=== PATIENT | female | born 2000 | race Hispanic/Latino ===

== ENCOUNTER 2023-07-19 19:11 | Emergency (ER) | payer OTHER, SELFPAY ==
--- NOTE | ~2023-07-19 | XR_ITS ---
EXAMINATION: XR chest 2V DATE: 07/19/2023 23:04 INDICATION: Chest pain and cough, shortness of breath TECHNIQUE: PA and lateral views of the chest are obtained. COMPARISON: None available FINDINGS: There are minimal airspace opacities of the middle lobe and lingula. No pleural effusion or pneumothorax. The cardiomediastinal silhouette is normal. The visualized bones and soft tissues are unremarkable. IMPRESSION: 1. Minimal airspace opacities of the lung bases, consistent with atelectasis versus pneumonia. Reviewed, dictated and finalized at location F. IMPRESSION: 1. Minimal airspace opacities of the lung bases, consistent with atelectasis ve rsus pneumonia.
--- NOTE | ~2023-07-19 | CT_ITS ---
EXAMINATION: CTA chest PE protocol DATE: 07/20/2023 00:50 INDICATION: Pleuritic chest pain. Tachycardia. TECHNIQUE: Computed tomography angiography (CTA) of the chest was performed with 100 mL Omnipaque-350 intravenous contrast timed to evaluate the pulmonary arteries. Coronal maximum intensity projection 3D-reconstructions were created by the technologist. Automated exposure control and iterative reconst ruction technique were employed. The dose-length product was 144.85 mGy-cm. COMPARISON: None. FINDINGS: There are small groundglass opacities in the lungs bilaterally. There is diffuse smooth sep theodora thickening in the lungs. There is mild atelectasis bilaterally. No pleural effusion. The heart si ze is normal. No pericardial effusion. There is no pulmonary embolus. There is mild thoracic spondylo sis. IMPRESSION: 1. No pulmonary embolus. 2. Mild pulmonary edema. Reviewed, dictated and finalized at location E.
[2023-07-19 19:55] VITALS: BP 120/80; PULSE 122; RESP 15; TEMP 37; O2SAT 100
[2023-07-19 20:43] LABS: Influenza A QL RT-PCR Negative (Negative); Influenza B QL RT-PCR Negative (Negative); RSV RNA, RT-PCR Negative (Negative); SARS-CoV-2 RNA PCR Negative (Negative)
--- NOTE | 2023-07-19 22:44 | ECG_ITS ---
Measurements Intervals [place] Rate: 116 P: 65 [place]: 146 QRS: 79 QRSD: 102 T: 0 QT: 311 QTc: 432 Interpretive Statements SINUS TACHYCARDIA DELAYED PRECORDIAL R/S TRANSITION MINIMAL Q WAVES- INFERIOR LEADS NONSPECIFIC ST & T-WAVE ABNORMALITY- INFERIOR LEADS ABNORMAL ECG NO PREVIOUS ECG AVAILABLE FOR COMPARISON Electronically Signed On 07-20-2023 6:29:03 CDT by Eleazar Tristan D.O.
--- NOTE | 2023-07-19 22:58 | ED.URI ---
HPI - URI/Sore Throat General Chief Complaint: Upper Respiratory Infection Stated Complaint: flu symptoms Time Seen by Provider: 07/19/23 21:35 History of Present Illness HPI Narrative: 22-year-old female reports for evaluation for body aches and chills, pleuritic chest pain, cough since today. Patient reports she feels like her lungs are on fire and tight . She states the chest pain is pleuritic and overlying her sternum and sometimes into her back. Denies shortness of breath. She reports nausea today, no vomiting or diarrhea. Denies abdominal pain, dysuria, hematuria. She does state that she was recently treated for a urinary tract infection and took her last dose of antibiotics today. States her UTI symptoms consisted of urinary frequency and urgency which resolved after initiation of antibiotics, however she feels that they have returned again today. LMP 9/10. Patient denies nasal congestion and sore throat. Patient is currently on control, she denies hemoptysis, history of VTE, recent surgeries or hospitalizations Related Data Home Medications Medication Instructions Recorded Confirmed cetirizine 10 mg capsule (Zyrtec) 10 mg PO DAILY PRN 02/02/22 02/02/22 fluticasone propionate 50 1 spray intranasal DAILY 02/02/22 02/02/22 mcg/actuation nasal spray,suspension (Flonase Allergy Relief) Allergies Allergy/AdvReac Type Severity Reaction Status Date / Time No Known Allergies Allergy Verified 07/19/23 19:55 Review of Systems Review of Systems: CONSTITUTIONAL: See HPI EYES: Denies visual changes, redness, or discharge. ENT: See HPI CARDIOVASCULAR: See HPI RESPIRATORY: See HPI GASTROINTESTINAL: Denies abdominal pain, nausea, vomiting, or diarrhea. GENITOURINARY: Denies dysuria or hematuria. SKIN: Denies rash or itching. MUSCULOSKELETAL: Denies back pain, joint pain, or myalgia. NEUROLOGIC: Denies headache, numbness, dizziness, or weakness. PSYCHIATRIC: Denies anxiety or depression. [facility] Social History Social History Smoking status: Never smoker Alcohol intake: never Substance use: never Exam Narrative: GENERAL: Well-appearing, in no acute distress. Patient resting abdomen exam bed. She is pleasant and conversational. HEAD: Normocephalic EYES: PERRLA, EOMI ENT: Nares clear. Mucous membranes moist. Oropharynx without tonsillar hypertrophy exudate or other lesions. Bilateral TMs are kruse nonbulging. Normal canals. Tenderness over the frontal and maxillary sinuses. NECK: Supple. No nuchal rigidity. CHEST: No respiratory distress. Clear to auscultation, no adventitious breath sounds. HEART: Regular rhythm. Tachycardia. No murmur heard. Normal peripheral pulses. ABDOMEN: Soft, nontender, normal active bowel sounds. EXTREMITIES: Normal range of motion. No edema. SKIN: Warm, dry, no rash. NEURO: No focal deficits. Alert and oriented x3. PSYCH: Normal mood and affect. Course Vital Signs Vital signs: Vital Signs Temperature 98.6 F 07/19/23 19:55 Pulse Rate 122 H 07/19/23 19:55 Respiratory Rate 15 07/19/23 19:55 Blood Pressure 120/80 07/19/23 19:55 Pulse Oximetry 100 07/19/23 19:55 Temperature 98.6 F 07/19/23 19:55 Pulse Rate 114 H 07/20/23 02:57 Respiratory Rate 15 07/20/23 02:57 Blood Pressure 103/48 L 07/20/23 02:57 Pulse Oximetry 100 07/20/23 02:57 MDM - URI/Sore Throat MDM Narrative Medical decision making narrative: 22-year-old female reports for evaluation for body aches and chills, pleuritic chest pain, cough, urinary frequency and urgency since today. See HPI for further history. Initial vitals reveal tachycardia of 122, otherwise unremarkable. She is satting 100% on room air and afebrile. Patient is well-appearing on exam, exam significant for the above. Labs significant for leukocytosis of 15.4. Chemistry shows sodium of 132, bicarb of 21 with a normal gap,
[2023-07-19] MEDS: SODIUM CHLORIDE 0.9% IV 1,000 ML 999 ML IV CONT (23:06)
[2023-07-19 23:16] LABS: Basophils Percent Auto 0.1 % (0.2-1.2); Eosinophils Absolute Auto 0.3 K/mm3 (0-0.3); Eosinophils Percent Auto 1.8 % (0-4.4); Hematocrit 38.4 % (37.0-47.0); Hemoglobin 12.4 g/dL (12.0-15.0); Immature Granulocyte Absolute 0.05 K/mm3 (0.00-0.031); Immature Granulocyte Percent A 0.3 % (0-0.5); Lymphocytes Absolute Auto 0.79 K/mm3 (0.9-3.2); Lymphocytes Percent Auto 5.1 % (18.3-44.2); Mean Corpuscular HGB Conc 32.3 g/dl (32-36); Mean Corpuscular Hemoglobin 28.6 pg (26-34); Mean Corpuscular Volume 88.7 fl (80-100); Mean Platelet Volume 11.2 fl (7.4-10.4); Monocytes Absolute Auto 0.9 K/mm3 (0.1-0.6); Monocytes Percent Auto 5.6 % (2.6-8.5); Neutrophils Absolute Auto 13.4 K/mm3 (1.3-6.7); Neutrophils Percent Auto 87.1 % (45.5-73.1); Platelet Count Result 237 k/mm3 (150-375); Red Blood Count 4.33 M/mm3 (4.2-5.4); Red Cell Distribution Width 12.4 % (11.5-14.5); White Blood Count 15.4 K/mm3 (4.5-10.0)
[2023-07-19] MEDS: ALBUTEROL SULFATE NEB 2.5 MG/3 ML INH INHALATION (23:22)
[2023-07-19 23:23] VITALS: PULSE 84; RESP 18
[2023-07-19] MEDS: IPRATROPIUM BR 0.02% INH SOLN 0.5 MG/2.5 ML VIAL INHALATION (23:23)
[2023-07-19 23:26] LABS: Alanine Aminotransferase 16 U/L (6-35); Albumin Level 4.5 g/dL (3.5-5.1); Alkaline Phosphatase 67 U/L (38-126); Anion Gap 8 mmol/L (8-16); Aspartate Amino Transferase 25 U/L (14-36); Bilirubin,Total 0.7 mg/dL (0.2-1.3); Blood Urea Nitrogen 5 mg/dL (7-17); Calcium 8.6 mg/dL (8.4-10.2); Carbon Dioxide 21 mmol/L (22-30); Chloride 103 mmol/L (98-107); Estimated Glomerular Filt Rate > 60; Glucose 111 mg/dL (65-110); Potassium 3.4 mmol/L (3.4-5.0); Sodium 132 mmol/L (137-145)
[2023-07-19 23:27] LABS: Appearance Urine Clear (Clear); Bacteria Urine None Seen /hpf; Bilirubin Urine Negative (Negative); Blood Urine Negative (Negative); Color Urine Yellow (Yellow); Glucose Urine UA Negative (Negative); Ketones Urine 4+ mg/dL (Negative); Leukocyte Esterase Ur Trace LEU/UL (Negative); Nitrate Urine Negative (Negative); Non Pathogenic Casts 0-2; Protein Urine Trace mg/dL (Negative); Specific Grav Ur 1.022 (1.001-1.035); Squamous Epithelial Cell Urine Occasional /hpf (Few); pH Urine 7.5 (5.0-9.0)
[2023-07-19 23:28] LABS: Add Urine Microscopic? YES
[2023-07-19 23:31] VITALS: PULSE 86; RESP 18
[2023-07-19 23:38] LABS: Troponin I < 0.012 ng/mL (0.000-0.034)
[2023-07-19 23:48] LABS: D Dimer 0.52 ug/mL (<0.48)
[2023-07-20 00:08] VITALS: BP 149/49; PULSE 141; RESP 15; O2SAT 99
[2023-07-20 00:10] LABS: Pregnancy On Board Control Positive; Urine Pregnancy Test Negative
[2023-07-20] MEDS: SODIUM CHLORIDE 0.9% IV 1,000 ML 999 ML IV CONT ×2 (01:08→03:00)
[2023-07-20 02:57] VITALS: BP 103/48; PULSE 114; RESP 15; O2SAT 100
[2023-07-20 04:41] VITALS: BP 113/65; PULSE 108; RESP 16; TEMP 37; O2SAT 100
== END 2023-07-20 04:42 | disposition home or self-care (01) ==
PROVIDERS: Emergency Medicine; Emergency Provider Physician Assistant; PCP Registered Nurse
DX: J18.9 Pneumonia, unspecified organism (principal); E86.0 Dehydration; R07.89 Other chest pain; R82.998 Other abnormal findings in urine; Z20.822 Contact with and (suspected) exposure to COVID-19; R00.0 Tachycardia, unspecified; R94.31 Abnormal electrocardiogram [ECG] [EKG]
CPT/HCPCS: 36415; 71046; 71275; 80053; 81001; 81025; 84484; 85025; 85380; 87086; 87637; 93005; 94640; 96360; 96361; 99284; J7030; Q9967

== ENCOUNTER 2024-03-13 15:07 | Emergency (ER) | payer OTHER, SELFPAY ==
--- NOTE | ~2024-03-13 | CT_ITS ---
EXAMINATION: CT brain wo con DATE: 03/13/2024 15:30 INDICATION: Head injury presenting with dizziness and headache TECHNIQUE: Computed tomography (CT) of the head was performed without intravenous contrast. Sagittal and coronal reconstructions were performed. The mA was adjusted according to patient size. Iterative reconstruction technique was employed. The dose-length product was 681.00 mGy-cm. COMPARISON: None FINDINGS: No fracture. No acute intracranial hemorrhage, acute infarction or abnormal extra axial fluid collect ion. Ventricles are normal and symmetric. No mass/mass effect. The orbits, paranasal sinuses and mast oid air cells are normal. IMPRESSION: 1. Normal head CT. No fracture or acute intracranial process. Reviewed, dictated and finalized at location A.
[2024-03-13 15:08] VITALS: BP 125/69; PULSE 83; RESP 20; TEMP 36.6; O2SAT 100
[2024-03-13 18:16] VITALS: BP 116/84; PULSE 85; RESP 16; O2SAT 100
--- NOTE | 2024-03-13 18:59 | ED.HEATRA ---
HPI - Head Injury General Chief complaint: Head Injury Stated complaint: I have a concussion Time Seen by Provider: 03/13/24 18:15 Source: patient Mode of arrival: ambulatory Limitations: no limitations History of Present Illness HPI Narrative: This is a 23 year old female that presents to the ER after a head injury earlier today. Reports she was accidentally hit with a garden hoe at work. Reports since she has been having headaches and dizziness. Denies vision changes, vomiting, numbness or weakness. Related Data Allergies Allergy/AdvReac Type Severity Reaction Status Date / Time No Known Allergies Allergy Verified 03/13/24 15:11 Review of Systems Review of Systems: CONSTITUTIONAL: Denies fever EYES: Denies visual changes GASTROINTESTINAL: Reports nausea. Denies vomiting NEUROLOGIC: Reports headache. Denies numbness, or weakness. All systems reviewed & are unremarkable except as noted in HPI and below PMFSH Past Medical History Medical History (Updated 03/13/24 @ 19:07 by Rebecca Alejandro PA-C) No active medical problems Social History Social History Smoking status: Never smoker Alcohol intake: never Substance use: never Exam Narrative: GENERAL: Well-appearing, well-nourished, and in no acute distress. HEAD: Normocephalic, atraumatic. EYES: PERRLA and EOMI. ENT: Nares clear, no rhinorrhea or epistaxis. Mucous membranes moist. Oropharynx without tonsillar hypertrophy exudate or other lesions. Bilateral TMs pearly kruse non-bulging NECK: Supple. No adenopathy or masses. CHEST: Clear to auscultation. No respiratory distress. No wheezes rales or rhonchi HEART: Regular rate and rhythm. No murmur heard. Normal peripheral pulses. EXTREMITIES: Normal range of motion. No edema. SKIN: Warm, dry, no rash. NEURO: No focal deficits. Alert and oriented x3. Cranial nerves 2-12 grossly intact. Normal gait PSYCH: Normal mood and affect Course Course Emergency Course: Patient updated on her workup and agrees with plan of care Vital Signs Vital signs: Vital Signs Temperature 97.9 F 03/13/24 15:08 Pulse Rate 83 03/13/24 15:08 Respiratory Rate 20 03/13/24 15:08 Blood Pressure 125/69 03/13/24 15:08 Pulse Oximetry 100 03/13/24 15:08 Oxygen Delivery Room Air 03/13/24 15:08 Temperature 97.9 F 03/13/24 15:08 Pulse Rate 85 03/13/24 18:16 Respiratory Rate 16 03/13/24 18:16 Blood Pressure 116/84 03/13/24 18:16 Pulse Oximetry 100 03/13/24 18:16 Oxygen Delivery Room Air 03/13/24 15:08 MDM - Head Injury MDM Narrative Medical decision making narrative: Patient presents to the ER after a head injury earlier with headache, nausea, dizziness. Her vitals are stable. She is neurologically intact. CT brain without acute findings. Patient was updated on her workup. Instructed on further care of concussion. She is to follow up with primary provider. She was given warnings to return to the ER Differential Diagnosis Differential diagnosis: Likely concussion without loss of consciousness and subdural hematoma Imaging Data Radiologist's impression: ITS Impressions Head CT 03/13/24 15:32 IMPRESSION: 1. Normal head CT. No fracture or acute intracranial process. Critical Care Time Critical Care Time Critical Care Time: No Discharge Plan Discharge Clinical Impression: Contact with garden tool Qualifiers: Encounter type: initial encounter Qualified Code(s): W27.1XXA - Contact with garden tool, initial encounter Head injury Qualifiers: Encounter type: initial encounter Qualified Code(s): S09.90XA - Unspecified injury of head, initial encounter Patient Disposition: Home, Self-Care Condition: Stable Instructions: Concussion (ED) Additional Instructions: Return to the emergency department if you experience fever, persistent vomiting, weakness, numbness, or any other symptoms th
[2024-03-13 19:10] VITALS: BP 100/60; PULSE 72; RESP 15; O2SAT 100
== END 2024-03-13 19:12 | disposition home or self-care (01) ==
PROVIDERS: Emergency Provider Physician Assistant; PCP Registered Nurse
DX: S09.90XA Unspecified injury of head, initial encounter (principal); W27.1XXA Contact with garden tool, initial encounter
CPT/HCPCS: 70450; 99284